=== PATIENT | male | born 1970 | race Caucasian/White ===

== ENCOUNTER 2023-01-23 16:07 | Emergency (ER) | payer OTHER, SELFPAY ==
[2023-01-23 16:36] VITALS: BP 124/86; PULSE 107; RESP 16; TEMP 36.8; O2SAT 97
--- NOTE | 2023-01-23 16:38 | ED.SKABFB ---
HPI - Skin/Abscess/Foreign Bdy General Chief complaint: Skin/Abscess/Foreign Body Stated complaint: Laceration to Finger Source: patient and RN notes reviewed History of Present Illness HPI narrative: 52-year-old male presents urgent care with a laceration to his left pinky. Patient states prior to arrival he accidentally cut his pinky on a piece of sheet metal. Denies any other injuries. Denies any numbness or tingling. Patient states he is up-to-date on his tetanus vaccination. Some parts of this dictation were generated by voice recognition software and may contain typographical and/or grammatical inaccuracies. Related Data Home Medications Medication Instructions Recorded Confirmed No Home Medications 01/23/23 01/23/23 Allergies Allergy/AdvReac Type Severity Reaction Status Date / Time No Known Allergies Allergy Verified 01/23/23 16:42 Review of Systems Review of Systems: CONSTITUTIONAL: Denies fever, chills, or sweats. EYES: Denies visual changes, redness, or discharge. ENT: Denies otalgia and sore throat CARDIOVASCULAR: Denies chest pain, palpitations, or edema. RESPIRATORY: Denies cough or dyspnea. GASTROINTESTINAL: Denies abdominal pain, nausea, vomiting, or diarrhea. GENITOURINARY: Denies dysuria or hematuria. SKIN: Laceration left pinky finger MUSCULOSKELETAL: Denies back pain, joint pain, or myalgia. NEUROLOGIC: Denies headache, numbness, or weakness. Pertinent positives per HPI. PMFSH Comments At the time of my signature, I reviewed and agree with the nursing past medical, surgical, social, and family history. There is no relevant family history pertinent to the patient complaint. Exam Narrative: GENERAL: This is a well-nourished, well-developed patient, in no apparent distress. HEAD: normocephalic, atraumatic. EYES: Sclera clear/white. Vision is grossly intact. EARS: External ears normal, auditory canals clear and without drainage. Hearing grossly intact. NOSE: External nose normal with no obvious nasal discharge, nares without redness, no rhinorrhea. THROAT: Mucous membranes moist, posterior pharynx clear. NECK: Neck supple, non-tender without lymphadenopathy, masses or thyromegaly. CARDIOVASCULAR: Regular rate RESPIRATORY: No respiratory distress SKIN: 1 cm laceration to volar side of left pinky finger, overlying DIP joint. NEURO: awake, alert, and oriented to person, place and time. There were no obvious focal neurologic abnormalities. Course Course Level of Care: Express Care Visit Vital Signs Vital signs: Vital Signs Temperature 98.2 F 01/23/23 16:36 Pulse Rate 107 H 01/23/23 16:36 Respiratory Rate 16 01/23/23 16:36 Blood Pressure 124/86 01/23/23 16:36 Pulse Oximetry 97 01/23/23 16:36 Oxygen Delivery Room Air 01/23/23 16:36 Temperature 98.2 F 01/23/23 16:36 Pulse Rate 107 H 01/23/23 16:36 Respiratory Rate 16 01/23/23 16:36 Blood Pressure 124/86 01/23/23 16:36 Pulse Oximetry 97 01/23/23 16:36 Oxygen Delivery Room Air 01/23/23 16:36 Reviewed Procedures Laceration Laceration 1: Date: 01/23/23 Time: 17:00 Site: upper extremity (Left pinky finger) Side (If applicable): left Size (cm): 1.5 Description: linear Depth: simple, single layer Local Anesthetic: lidocaine 1% Amount of anesthesia used (mL): 2 Pre-repair: wound explored and irrigated ====== Skin Level ====== Skin layer closed with: nylon Size (cm): 4-0 Number of sutures: 4 Technique: simple, interrupted ====== Subcutaneous Layer ====== ====== Muscle Layer ====== ====== Tendon Layer ====== Dressing: LACERATION REPAIR: The procedure was explained and verbal consent obtained. The area of the laceration was prepped with [employer], sterile water and sterilely draped. The wound was anesthetized with 1% Lidocaine with local infiltration. The wound was thorou
== END 2023-01-23 17:13 | disposition home or self-care (01) ==
PROVIDERS: Emergency Provider Nurse Practitioner Family; PCP Family Medicine
DX: S61.217A Laceration without foreign body of left little finger without damage to nail, initial encounter (principal); W26.8XXA Contact with other sharp object(s), not elsewhere classified, initial encounter
CPT/HCPCS: 12001; 99212; G0463

== ENCOUNTER 2024-03-25 14:06 | Outpatient (CLI) | payer MEDICAID, SELFPAY ==
--- NOTE | ~2024-03-25 | XR_ITS ---
EXAMINATION: XR chest 2V 03/25/2024 15:27 INDICATION: Shortness of breath PROCEDURE: 2 view chest COMPARISON: No prior studies for comparison. FINDINGS: The lungs are clear. The cardiomediastinal silhouette is within normal limits. There are no pleural effusions. There is no pneumothorax suspected. IMPRESSION: 1: NO ACUTE CARDIOPULMONARY DISEASE. Reviewed, dictated and finalized at location B.
--- NOTE | ~2024-03-25 | XR_ITS ---
3 VIEWS THORACIC SPINE Ordering provider: Parisa Bergman APRN History: . M41.9 - Scoliosis, unspecified . Comparison: None. FINDINGS: VERTEBRAL BODIES: Normal height and alignment. No visible fracture or subluxation. Mild degenerative changes in the lower thoracic area. Mild levoscoliosis. DISK SPACES: Normal. SOFT TISSUES: Normal. IMPRESSION: No acute osseous abnormality of the thoracic spine. Reviewed, dictated and finalized at location A.
--- NOTE | ~2024-03-25 | XR_ITS ---
XR knee LT 3V Ordering provider: Parisa Bergman APRN History: . M25.569 - Pain in unspecified knee . Comparison: None. FINDINGS: BONES: No acute fracture or dislocation. JOINT SPACES: Normal. SOFT TISSUES: Normal. IMPRESSION: No acute osseous abnormality left knee. Consider MRI knee if there is concern for soft tissue internal derangement. Reviewed, dictated and finalized at location A.
--- NOTE | ~2024-03-25 | XR_ITS ---
XR_[id number]_CR Ordering provider: Parisa Bergman APRN History: . M41.9 - Scoliosis, unspecified . Comparison: None. FINDINGS: VERTEBRAL BODIES: Normal height and alignment. No visible fracture or subluxation. The dens is intact . Degenerative changes of the spine. DISK SPACES: Slight narrowing of the disc C6-C7. Multilevel uncovertebral joint osteoarthritic changes. PARASPINOUS SOFT TISSUES: No prevertebral soft tissue swelling. IMPRESSION: No acute osseous abnormality cervical spine. . Reviewed, dictated and finalized at location A.
--- NOTE | ~2024-03-25 | XR_ITS ---
3 VIEWS LUMBAR SPINE Ordering provider: Parisa Bergman APRN History: . M41.9 - Scoliosis, unspecified . Comparison: None. FINDINGS: VERTEBRAL BODIES:No evidence of scoliosis. No visible fracture or subluxation. Possible lucency in t he transverse process of L1 the right side. Evaluate for trauma history. DISK SPACES: Normal. SOFT TISSUES: Normal. IMPRESSION: No definite acute osseous abnormality lumbar spine. No scoliosis. Reviewed, dictated and finalized at location A.
== END 2024-03-25 14:07 | disposition home or self-care (01) ==
LOC: ANHBWCIMG 14:08
PROVIDERS: PCP Nurse Practitioner Adult Health; Visit Provider Nurse Practitioner Adult Health
DX: M41.9 Scoliosis, unspecified (principal); M25.569 Pain in unspecified knee; R06.02 Shortness of breath
CPT/HCPCS: 71046; 72040; 72072; 72100; 73562